=== PATIENT | female | born 1955 | race Hispanic/Latino ===

== ENCOUNTER 2018-11-02 00:22 | Inpatient (IN) | payer OTHER, SELFPAY ==
[2018-11-02] MEDS ORDERED: Naloxone HCl 0.4 mg/ml Vial ONE ×2 (00:24→05:19)
[2018-11-02] MEDS ORDERED: Ondansetron PF 4 MG/2 ML Vial ONE (00:32)
[2018-11-02] MEDS ORDERED: Acetaminophen 1,000 MG in Premix Bag 1 BAG IVPB SCH (00:45)
[2018-11-02] MEDS ORDERED: Lorazepam 2 MG/ML VIAL ONE (00:58)
[2018-11-02 01:05] LABS: #Basophils 0.1 thou/uL (0.0-0.2); #Lymphocytes 2.2 thou/uL (1.20-3.40); #Monocytes 0.9 thou/uL (0.11-0.59); #Neutrophils 8.7 thou/uL (1.40-6.50); %Basophils 0.6 % (0.0-1.0); %Eosinophils 0.1 % (0.0-10.0); %Lymphocytes 18.7 % (21.0-51.0); %Monocytes 7.6 % (0.0-10.0); Hemoglobin 11.2 g/dL (12.0-16.0); Mean Corpuscular HGB CONC 35.1 g/dL (32.0-36.0); Mean Corpuscular Hemoglobin 30.4 pg (27.0-31.0); Mean Corpuscular Volume 86.6 fL (78.0-98.0); Platelet Count 428 thou/uL (130-400); Red Blood Cell (RBC) Count 3.67 mill/uL (4.20-5.40); White Blood Cell (WBC) Count 11.9 thou/uL (4.8-10.8)
[2018-11-02 01:19] LABS: Acetaminophen Less than 6.0 mcg/mL (10.0-30.0); Alcohol Less than 10 mg/dL (Less than 10); Salicylate Less than 8.0 mg/dL (15.0-30.0)
[2018-11-02 01:26] LABS: ALT (SGPT) 27 U/L (8-55); AST (SGOT) 18 U/L (5-34); Albumin 3.6 g/dL (3.4-4.8); Alkaline Phosphatase 70 U/L (40-150); Anion Gap 17 mmol/L (10-20); BUN (Urea Nitrogen) 36 mg/dL (9.8-20.1); Bilirubin, Total 0.4 mg/dL (0.2-1.2); Calc. Creatinine Clearance 0 mL/min (70-130); Calcium 8.5 mg/dL (7.8-10.44); Carbon Dioxide 11 mmol/L (23-31); Chloride 113 mmol/L (98-107); Estimated GFR-MDRD 45; Globulin 2.6 g/dL (2.4-3.5); Glucose 263 mg/dL (80-115); Lipase 57 U/L (8-78); Protein, Total 6.2 g/dL (6.0-8.3); Sodium 138 mmol/L (136-145)
[2018-11-02 01:42] LABS: CKMB 4.3 ng/mL (0-6.6)
[2018-11-02] MEDS ORDERED: Atropine Sulfate 1 mg/10 ml Syringe ONE (03:04)
[2018-11-02] MEDS ORDERED: metroNIDAZOLE 500 MG/100 ML BAG ONE (03:36)
[2018-11-02] MEDS ORDERED: Aspirin 300 MG Suppository ONE (03:36)
[2018-11-02] MEDS ORDERED: Aspirin 325 MG TAB ONE (03:37)
[2018-11-02] MEDS ORDERED: methylPREDNISolone Sod Succ/PF 125 MG/2 ML VIAL ONE (05:44)
[2018-11-02] MEDS ORDERED: diphenhydrAMINE 50 MG/ML VIAL ONE (05:44)
[2018-11-02 07:12] LABS: Bilirubin Negative (Negative); Blood, Urine Negative (Negative); Clarity CLEAR (Clear); Glucose, Urine (Dipstick) Negative (Negative); Leukocyte Negative (Negative); Nitrite Negative (Negative); Protein, Urine (Dipstick) Trace mg/dL (Neg-Trace); Urobilinogen 0.2 mg/dL (0.2-1.0)
[2018-11-02 07:13] LABS: Amphetamine Not Detected (NotDetected); Barbiturates Screen Not Detected (NotDetected); Benzodiazepine Screen Detected (NotDetected); Cocaine Metabolite Screen Not Detected (NotDetected); Medtox Control Line Valid? VALID (VALID); Medtox Reader # READER 1; Methadone Not Detected (NotDetected); Methamphetamine Not Detected (NotDetected); Opiate Screen Detected (NotDetected); Oxycodone Screen Not Detected (NotDetected); Phencyclidine (PCP) Not Detected (NotDetected); THC/Cannabinoid Screen Not Detected (NotDetected); Tricyclic Screen Not Detected (NotDetected)
[2018-11-02 07:33] LABS: Specific Gravity, Urine 1.046 (1.002-1.036)
--- NOTE | 2018-11-02 08:27 | RAD ---
CHEST 1 VIEW: Date: 11/02/18 HISTORY: Chest pain. COMPARISON: Chest radiograph dated 07/10/17. FINDINGS: Lungs are hypoinflated with vascular crowding. No pneumothorax. No large effusion. No acute osseous a bnormality. IMPRESSION: Lung hypoinflation with vascular crowding. POS: [facility]
[2018-11-02 08:30] LABS: Anion Gap 14 mmol/L (10-20); BUN (Urea Nitrogen) 32 mg/dL (9.8-20.1); Calc. Creatinine Clearance 0 mL/min (70-130); Calcium 8.6 mg/dL (7.8-10.44); Carbon Dioxide 10 mmol/L (23-31); Chloride 118 mmol/L (98-107); Estimated GFR-MDRD 68; Glucose 188 mg/dL (80-115); Sodium 139 mmol/L (136-145)
[2018-11-02] MEDS ORDERED: Insulin Regular 300 UNITS/3 ML VIAL SC PRN (08:33)
[2018-11-02] MEDS ORDERED: Dextrose 50% Abboject 50 ML SYRINGE SLOW IVP PRN (08:33)
[2018-11-02] MEDS ORDERED: Dextrose 5% in Water 1,000 ML IV PRN (08:33)
[2018-11-02 08:37] LABS: Potassium 2.7 mmol/L (3.5-5.1)
[2018-11-02] MEDS ORDERED: Sodium Bicarbonate 100 MEQ in Sodium Chloride 0.45% 1,000 ML IV SCH (08:45)
[2018-11-02] MEDS ORDERED: Potassium Chloride 40 MEQ in Premix Bag 1 BAG IVPB SCH (09:00)
[2018-11-02] MEDS ORDERED: 1/2 NS w/KCL 20 mEq 1,000 ML IV SCH (09:00)
[2018-11-02] MEDS ORDERED: Potassium Chloride 10 MEQ TAB PO SCH ×5 (09:00→21:00)
--- NOTE | 2018-11-02 09:18 | CT ---
PRELIMINARY REPORT/[facility]/EMERGENTY AFTER-HOURS PROCEDURE CT Abdomen and Pelvis With Contrast EXAM DATE/TIME: 11/02/2018 1:59 AM CLINICAL HISTORY: 62 years old, female; Pain; Abdominal pain; Generalized; Patient HX: FBlaine presents to ed for altered m ental status. Ems reports altered mental status per family and reports gsc of 14. Pt's family reports PT fell last week and reports she has been "feeling really really sick". Pt's family reports problem s with her stomach reporting she hasn't been able to eat and has been vomiting x2 days. TECHNIQUE: Axial computed tomography images of the abdomen and pelvis with intravenous contrast. Coronal reforma tted images were created and reviewed. COMPARISON: No relevant prior studies available. FINDINGS: Lower thorax: Minimal bibasilar atelectasis. ABDOMEN: Liver: Normal. Gallbladder and bile ducts: Normal. Pancreas: Normal. Spleen: Normal. Adrenals: Normal. Kidneys and ureters: Simple right renal cysts, the largest measuring approximately 10 mm in diameter. Nonobstructing 2 mm left nephrolithiasis. Stomach and bowel: Normal. Appendix: Appendix is normal. PELVIS: Bladder: Unremarkable as visualized. Reproductive: Uterus is surgically absent. ABDOMEN and PELVIS: Intraperitoneal space: Normal. No free air. No significant fluid collection. Bones/joints: No acute abnormality. Soft tissues: Small fat containing umbilical hernia. Vasculature: Mild three-vessel coronary artery atherosclerotic disease. Atherosclerotic disease of the abdominal aorta. Phleboliths within the pelvis. Lymph nodes: Normal. No enlarged lymph nodes. IMPRESSION: No acute abdominal or pelvic abnormality. Thank you for allowing us to participate in the care of your patient. Dictated and Authenticated by: Hari Warren MD 11/02/2018 2:16 AM Central Time ([place] & [place]) FINAL REPORT CT ABDOMEN AND PELVIS WITH CONTRAST: Date: 11/02/18 HISTORY: Abdominal pain. COMPARISON: CT abdomen and pelvis dated 06/24/16. FINDINGS/IMPRESSION: Findings and impression are concordant with the preliminary report by [facility]. POS: [facility]
--- NOTE | 2018-11-02 09:20 | CT ---
PRELIMINARY REPORT/[facility]/EMERGENT[facility] AFTER-HOURS PROCEDURE CT Head Without Contrast EXAM DATE/TIME: 11/02/2018 1:52 AM CLINICAL HISTORY: 62 years old, female; Signs and symptoms; Altered mental status/memory loss; Confusion or disorientat ion; Patient HX: F62 presents to ed for altered mental status. Ems reports altered mental status per family and reports gsc of 14. Pt's family reports PT fell last week and reports she has been "feeling really really sick". Pt's family reports problems with her stomach reporting she hasn't been able to eat and has been vomiting x2 days. TECHNIQUE: Axial computed tomography images of the head/brain without contrast. COMPARISON: No relevant prior studies available. FINDINGS: Brain: Normal. Ventricles: Normal. Bones/joints: Normal. Sinuses: Normal as visualized. Mastoid air cells: Normal as visualized. Soft tissues: Normal. IMPRESSION: No acute intracranial abnormality. Thank you for allowing us to participate in the care of your patient. Dictated and Authenticated by: Hari Warren MD 11/02/2018 2:14 AM Central Time ([place] & [place]) FINAL REPORT CT BRAIN WITHOUT CONTRAST: Date: 11/02/18 HISTORY: Altered mental status. COMPARISON: CT brain dated 08/19/12. FINDINGS/IMPRESSION: Findings and impression are concordant with the preliminary report by [facility]. POS: [facility]
[2018-11-02 09:27] LABS: Troponin I 0.035 ng/mL (< 0.028)
[2018-11-02] MEDS: Potassium Chloride 20 MEQ in Premix Bag 1 BAG IVPB SCH ×2 (10:25→22:03)
--- NOTE | 2018-11-02 11:16 | HP ---
PRIMARY CARE PHYSICIAN: Caity Moreno. CHIEF COMPLAINT: Altered mentation with low blood pressure at home. History obtained from the patient and the family at the bedside. HISTORY OF PRESENT ILLNESS: The patient is a 62-year-old female with hypertension, chronic pain syndrome, and diabetes mellitus type 2, was brought into the emergency room with above symptoms. The patient had a mechanical fall last week. Since then, she has been declining. She has not been eating and drinking well. She is unable to keep any food down due to vomiting especially after eating. No fever, chills, or diarrhea reported. She denies any chest pain, palpitations, lightheadedness, dizziness, or syncope. Yesterday morning, her blood pressure was in 170s. She took a dose of 0.1 mg clonidine, which she takes as needed for elevated blood pressure. She also took a scheduled lisinopril dose. The family noticed that the blood pressure was in 60s along with altered mentation, for which she was brought to the hospital for evaluation. PAST MEDICAL HISTORY: 1. Hypertension. 2. Diabetes mellitus type 2. 3. Chronic pain syndrome. 4. Degenerative joint disease. 5. GERD. PAST SURGICAL HISTORY: 1. Cholecystectomy. 2. Hysterectomy. ALLERGIES: NO KNOWN DRUG ALLERGIES. CURRENT HOME MEDICATIONS: Family to bring the current list of medications. She is unable to recall all of her medications. She takes lisinopril every day. She takes clonidine as needed for elevated blood pressure. SOCIAL HISTORY: The patient currently lives at home. No smoking, alcohol, or drug use. The family is at the bedside. FAMILY HISTORY: Negative for premature coronary artery disease. REVIEW OF SYSTEMS: All other review of systems were reviewed and were found negative. PHYSICAL EXAMINATION: VITAL SIGNS: In the emergency room showed temperature of 98.1, respirations 16, pulse rate of 57, blood pressure of 74/39 that improved with IV fluids. She was also dropped her heart rate in 40s requiring atropine in the emergency room. GENERAL: A 62-year-old female, in no apparent distress. Pain controlled at this time. HEENT: Head, atraumatic and normocephalic. Sclerae are anicteric. Dry mucous membranes. No oral lesion. NECK: Supple. No JVD appreciated. No carotid bruit. LUNGS: Essentially clear to auscultation bilaterally. No wheezing, rales, or rhonchi. HEART: S1 and S2 present. Regular rate and rhythm. No murmurs, rubs, or gallops appreciated. ABDOMEN: Soft, nontender. Bowel sounds are present. No rebound or guarding. No costovertebral angle tenderness. EXTREMITIES: No edema or calf tenderness. NEUROLOGIC: Grossly nonfocal. Moves all 4 extremities. PSYCHIATRY: The patient is slow to respond, however, answers appropriately. She is alert, awake, and oriented x3. Normal affect. SKIN: Warm and dry. PERIPHERAL VASCULAR: Radial pulses palpable bilaterally, low volume. LYMPH NODES: No palpable lymph nodes in the neck. LABORATORY DATA: Sodium 138, potassium 3, chloride 113, bicarbonate 11, BUN 36, creatinine 1.21, glucose of 263. WBC 11.9, hemoglobin 11.2, platelet 428. Lactic acid 2.3. Troponin 0.084. BNP 301. Urine specific gravity 1.046. There were no wbc's or bacteria in the urine. Urine drug screen was positive for opiates. IMAGING STUDIES: Chest x-ray by my review showed decreased lung volume without any infiltrate. CT scan of the brain by my review was negative for acute findings. CT scan of the abdomen and pelvis without contrast was negative for acute findings. It showed a simple right renal cyst measuring approximately 10 mm with nonobstructing 2 mm left nephrolithiasis. EKG by my review showed sinus bradycardia with left axis deviation and left ventricular hypertrophy. IMPRESSION: 1. Toxic metabolic encephalopathy, improving. 2. Dehydration with acute kidney injury on chronic kidney disease stage 2. 3. Metabolic acidosis/lactic acidosis. 4. Elevated troponin secondary to demand ischemia/hypotension. 5. Hypokalemia. 6. Chronic anemia. 7. Chronic pain syndrome. 8. Diabetes mellitus type 2 with hyperglycemia. 9. Renal cyst/Nonobstructing renal calculi. PLAN: The patient will be monitored on the telemetry unit. We will replace potassium. We will avoid sodium bicarbonate due to significant hypokalemia. We will get echocardiogram. We will resume selected home medications once confirmed. We will slowly advance the diet. Orthostatic vital signs every morning. Vital signs q.4 hourly. Insulin sliding scale. We will check A1c. Frequent neuro checks. Recheck labs in a.m. Plan of care was discussed with the patient in detail. She stated understanding. Job ID: [id number] [facility]
[2018-11-02] MEDS ORDERED: traMADol HCl 50 MG TAB PO PRN (12:23)
[2018-11-02] MEDS: Gabapentin 300 MG CAP PO SCH ×2 (15:12→20:23)
[2018-11-02] MEDS: Heparin 5,000 UNITS/ML VIAL SC SCH ×2 (15:13→21:00)
[2018-11-02] MEDS ORDERED: ISOVUE-370 76%-LOCM 1 ML ONE (16:36)
[2018-11-02] MEDS ORDERED: Ondansetron PF 4 MG/2 ML Vial IVP PRN (17:18)
[2018-11-02] MEDS ORDERED: Ondansetron ODT 4 MG TAB PO PRN (17:18)
[2018-11-02] MEDS ORDERED: Labetalol HCl 100 MG/20 ML VIAL SLOW IVP PRN (19:57)
[2018-11-02] MEDS: 1/2 NS w/KCL 20 mEq 1,000 ML IV SCH ×2 (19:59→21:09)
[2018-11-02] MEDS: Acetaminophen 325 MG TAB PO PRN (20:24)
[2018-11-02] MEDS: Famotidine 20 MG TAB PO SCH (20:25)
[2018-11-02] MEDS: Insulin Regular 300 UNITS/3 ML VIAL SC PRN (21:03)
[2018-11-02] MEDS: cloNIDine 0.1 MG TAB PO PRN (22:15)
[2018-11-02] MEDS: hydrALAZINE 20 MG/ML VIAL SLOW IVP PRN (23:56)
[2018-11-03 05:48] LABS: ALT (SGPT) 45 U/L (8-55); AST (SGOT) 42 U/L (5-34); Albumin 3.5 g/dL (3.4-4.8); Alkaline Phosphatase 61 U/L (40-150); Anion Gap 12 mmol/L (10-20); BUN (Urea Nitrogen) 21 mg/dL (9.8-20.1); Bilirubin, Total 0.3 mg/dL (0.2-1.2); Calc. Creatinine Clearance 79 mL/min (70-130); Calcium 9.3 mg/dL (7.8-10.44); Carbon Dioxide 15 mmol/L (23-31); Chloride 119 mmol/L (98-107); Estimated GFR-MDRD 71; Globulin 2.9 g/dL (2.4-3.5); Glucose 144 mg/dL (80-115); Magnesium 1.8 mg/dL (1.6-2.6); Potassium 3.8 mmol/L (3.5-5.1); Protein, Total 6.4 g/dL (6.0-8.3); Sodium 142 mmol/L (136-145)
[2018-11-03 06:14] LABS: Band 7 % (5-11); Hemoglobin 10.2 g/dL (12.0-16.0); Lymphocytes 42 % (21-51); MDiff Complete? YES; Mean Corpuscular HGB CONC 34.5 g/dL (32.0-36.0); Mean Corpuscular Hemoglobin 29.9 pg (27.0-31.0); Mean Corpuscular Volume 86.7 fL (78.0-98.0); Mean Platelet Volume 8.2 fL (7.4-10.4); Monocytes 3 % (0-10); Neutrophil 48 % (42-75); Platelet Count 406 thou/uL (130-400)
[2018-11-03] MEDS: cloNIDine 0.1 MG TAB PO PRN ×2 (08:38→15:39)
[2018-11-03] MEDS: Famotidine 20 MG TAB PO SCH ×2 (08:39→20:32)
[2018-11-03] MEDS: Gabapentin 300 MG CAP PO SCH ×3 (08:39→20:32)
[2018-11-03] MEDS: Heparin 5,000 UNITS/ML VIAL SC SCH ×3 (08:40→20:29)
[2018-11-03 15:04] VITALS: BMI 37.5
[2018-11-03] MEDS ORDERED: Lisinopril 20 MG TAB PO SCH (17:15)
--- NOTE | 2018-11-03 18:36 | PDOC.PN ---
- Subjective Encounter Start Date: 11/03/18 Encounter Start Time: 16:30 Subjective: Walked well with therapy this afternoon. BP trend has been elevated. -: At home was using gabapentin and tizanadine (new, for sleep) prior to admit -: No nausea, feeling better, tolerated a diet - Objective Resuscitation Status - Order Detail: 11/02/18 12:18 Resuscitation Status Routine Resuscitation Status: FULL: Full Resuscitation Vital Signs & Weight: Vital Signs (12 hours) Temp Pulse Resp BP BP BP Pulse Ox 11/03/18 17:39 182/81 H 11/03/18 15:40 97.9 F 75 20 182/81 H 100 11/03/18 15:39 182/81 H 11/03/18 10:15 81 126/59 L 11/03/18 08:38 193/86 H 11/03/18 07:55 98.5 F 76 16 193/86 H 100 Weight Admit Weight 155 lb 5 oz Weight 155 lb 14.4 oz I&O: 11/02/18 11/03/18 11/04/18 06:59 06:59 06:59 Intake Total 1184 Output Total 700 Balance 484 Result Diagrams: 11/03/18 04:40 11/03/18 04:40 Additional Labs: Accuchecks 11/03/18 11/03/18 11/03/18 17:19 10:57 05:54 POC Glucose 164 H 227 H 140 H 11/02/18 20:19 POC Glucose 224 H Phys Exam - Physical Examination Constitutional: NAD HEENT: PERRLA Neck: supple, full ROM Respiratory: clear to auscultation bilateral Cardiovascular: RRR Gastrointestinal: soft, non-tender Musculoskeletal: no edema Neurological: non-focal Lymphatic: no nodes Psychiatric: normal affect, A&O x 3 Skin: no rash Dx/Plan (1) Restless leg syndrome Status: Chronic (2) Metabolic acidosis Code(s): E87.2 - ACIDOSIS Status: Acute Plan: Improving (3) Diabetes Code(s): E11.9 - TYPE 2 DIABETES MELLITUS WITHOUT COMPLICATIONS Status: Chronic Qualifiers: (4) HTN (hypertension) Code(s): I10 - ESSENTIAL (PRIMARY) HYPERTENSION Status: Chronic Qualifiers: Plan: Uncontrolled (5) Toxic metabolic encephalopathy Code(s): G92 - TOXIC ENCEPHALOPATHY Status: Acute (6) Chronic anemia Code(s): D64.9 - ANEMIA, UNSPECIFIED Status: Acute Plan: Stable (7) Dehydration Code(s): E86.0 - DEHYDRATION Status: Acute Plan: Improving (8) Hypokalemia Code(s): E87.6 - HYPOKALEMIA Status: Acute Plan: Repleted - Plan cont current plan of care, plan discussed w/ family, out of bed/ambulate * Discussed with family decreasing gabapentin and tizanadine. Continue PT/OT. Check AML. Restarted home lisinopril. Metabolic acidosis improving. SL IVF. Continue po nutrition, tolerating well. * High risk based on age/comorbidities
[2018-11-03] MEDS: hydrALAZINE 20 MG/ML VIAL SLOW IVP PRN (20:26)
[2018-11-03] MEDS: Acetaminophen 325 MG TAB PO PRN (20:32)
[2018-11-03] MEDS: 1/2 NS w/KCL 20 mEq 1,000 ML IV SCH (20:37)
[2018-11-03] MEDS: Insulin Regular 300 UNITS/3 ML VIAL SC PRN (21:25)
[2018-11-04 05:51] LABS: Eosinophils 2 % (0-10); Hemoglobin 10.6 g/dL (12.0-16.0); Hypochromia SLIGHT = 6-15 cells (100X) (0-5/hpf); Lymphocytes 25 % (21-51); MDiff Complete? YES; Mean Corpuscular HGB CONC 34.9 g/dL (32.0-36.0); Mean Corpuscular Hemoglobin 30.1 pg (27.0-31.0); Mean Corpuscular Volume 86.3 fL (78.0-98.0); Mean Platelet Volume 8.1 fL (7.4-10.4); Monocytes 3 % (0-10); Neutrophil 70 % (42-75); PLT Morphology Comment Appears Increased; Platelet Count 451 thou/uL (130-400); Red Blood Cell (RBC) Count 3.51 mill/uL (4.20-5.40); White Blood Cell (WBC) Count 8.6 thou/uL (4.8-10.8)
[2018-11-04 05:56] LABS: Anion Gap 10 mmol/L (10-20); BUN (Urea Nitrogen) 14 mg/dL (9.8-20.1); Calc. Creatinine Clearance 93 mL/min (70-130); Calcium 9.2 mg/dL (7.8-10.44); Carbon Dioxide 18 mmol/L (23-31); Chloride 116 mmol/L (98-107); Estimated GFR-MDRD 85; Glucose 148 mg/dL (80-115); Sodium 141 mmol/L (136-145)
[2018-11-04] MEDS: Gabapentin 300 MG CAP PO SCH ×2 (08:50→17:14)
[2018-11-04] MEDS: Heparin 5,000 UNITS/ML VIAL SC SCH ×2 (08:50→17:11)
[2018-11-04] MEDS: Famotidine 20 MG TAB PO SCH (08:50)
[2018-11-04] MEDS ORDERED: Lisinopril 20 MG TAB PO SCH (09:00)
[2018-11-04] MEDS ORDERED: Potassium Chloride 20 MEQ TAB PO SCH (17:15)
[2018-11-04 17:17] VITALS: BP 169/77; TEMP 98.5
--- NOTE | 2018-11-05 16:58 | EKG ---
Test Reason : Blood Pressure : / mmHG Vent. Rate : 057 BPM Atrial Rate : 057 BPM P-R Int : 146 ms QRS Dur : 084 ms QT Int : 436 ms P-R-T Axes : 017 -11 025 degrees QTc Int : 424 ms Sinus bradycardia Moderate voltage criteria for LVH, may be normal variant Borderline ECG Confirmed by WEST ANGELES ([id number]), production editor NAM WILLIAMSON ([id number]) on 11/05/2018 4:57:59 PM Referred By: Confirmed By:WEST ANGELES
--- NOTE | 2018-11-05 18:56 | DIS ---
DATE OF ADMISSION: 11/02/2018 DATE OF DISCHARGE: 11/04/2018 CHIEF COMPLAINT: Alteration in mental status with low blood pressure at home. PRINCIPAL DIAGNOSES ON ADMISSION: 1. Toxic metabolic encephalopathy. 2. Dehydration/intravascular volume depletion. DISCHARGE DIAGNOSES: 1. Toxic metabolic encephalopathy, likely multifactorial in the context of dehydration as well as polypharmacy. 2. Intravascular volume depletion/dehydration, improved. 3. Chronic kidney disease stage 2. 4. Metabolic acidosis/lactic acidosis, improving. 5. Elevated troponins secondary to demand ischemia/hypotension. 6. Hypokalemia, improving. 7. Chronic anemia. 8. Chronic pain syndrome. 9. Restless leg syndrome, for which she uses gabapentin. 10. Type 2 diabetes. 11. History of essential hypertension. STUDIES AND PROCEDURES: Abdomen/pelvic CT with contrast 11/02/2018, no acute abdominal or pelvic abnormality. Simple right renal cysts, largest measuring 10 mm in diameter incidentally noted. Nonobstructing [address] brain 11/02/2018, no acute intracranial abnormality. Chest x-ray 11/02/2018, lungs are hyperinflated with vascular crowding, no pneumothorax, no large effusion, no acute osseous abnormality. HOSPITAL COURSE: Ms. Matias is a 62-year-old female presenting to [facility] on 11/02/2018 with family complaining of altered mental status and low blood pressure at home. The patient had sustained a mechanical fall the week prior, and had temporarily since the interval timeframe period, she had not been eating or drinking well, the family reporting vomiting following eating. No reported fevers or chills at home. After taking her usual blood pressure medication, family noted low blood pressure for which she was brought to the hospital for evaluation. Ms. Matias showed evidence of intravascular volume contraction, and was treated with IV fluids. Additionally, her dose of Neurontin was decreased. In speaking with the patient's family yesterday, she has also been recently initiated on tizanidine, taking at night to promote sleep. Over the ensuing hospital course, blood pressure noted to be somewhat labile, generally running on the high side. This was not overly aggressively treated based on her initial presenting symptom of hypotension. Laboratory data showed improvement, diet was tolerated, and she appears at this time to be stable to transition home and to the care of her family. I spoke with the family about decreasing her dose of Neurontin to 300 mg p.o. three times daily as well as discontinuing tizanidine at this time. My concern is that with her exposure to both medications, this maybe contributing to alteration in her mental status secondary to polypharmacy. They expressed understanding. They will also be present at home to continue to assist her in her recovery. On the day of discharge, I saw and examined the patient, spoke with the family in the room. The patient is eager to return to home. Her lungs are clear to auscultation. Her abdomen is soft and nontender. She has no significant lower extremity edema. Neurologically, she is intact. She is oriented to person, place, and time, able to name her family members present in the room. Her home support is excellent. DISCHARGE INSTRUCTIONS: DISCHARGE: To home. MEDICATIONS: 1. Neurontin 300 mg p.o. three times daily, represents decreased dose relative to admission. 2. HFA 1 to 2 puffs q.4 hourly p.r.n. shortness of breath, same as admission. 3. Buprenorphine, uses 300 mcg patch on inside of cheek for 5 seconds b.i.d. 4. Clonidine 0.1 mg p.o. b.i.d. 5. Lisinopril 20 mg p.o. once daily. 6. Metformin 500 mg p.o. b.i.d. with meals. 7. Potassium chloride 20 mEq p.o. daily. 8. Tramadol 150 mg p.o. b.i.d. p.r.n. pain. DIET: Diabetic. ACTIVITY: As tolerated. FOLLOWUP: Follow up with primary care physician, Rashid in 7 days. Total time spent on discharge is 45 minutes. Job ID: [id number]
--- NOTE | 2018-11-07 09:00 | PQF ---
Miri Matias AYDEE PINTO [id number] [facility]-269 [id number] CLINICAL DOCUMENTATION CLARIFICATION FORM: POST DISCHARGE DATE: 11/07/2018 ATTN: Dr. Pinot Please exercise your independent, professional judgment in responding to the clarification form. Clinical indicators are provided on the bottom of this form for your review Please check appropriate box(s) to clarify if the following diagnosis has been ruled in or ruled out: Acute Kidney Injury [ ] Ruled in diagnosis [ ] Continue to treat [ ] Resolved [ ] Ruled out diagnosis [ ] Cannot rule out diagnosis [ ] Other diagnosis (please specify) [ ] Unable to determine In addition, please specify: Present on Admission (POA): [ ] Yes [ ] No [ ] Unable to determine For continuity of documentation, please document condition throughout progress notes and discharge summary. Thank You. CLINICAL INDICATORS - SIGNS / SYMPTOMS / LABS Per H&P: Dehydration with acute kidney injury on chronic kidney disease stage 2. Per labs: BUN 36 and 32 on 11/02. 21 on 11/03. Creatinine 1.21 on 11/02. RISK FACTORS Dehydration with toxic metabolic encephalopathy. TREATMENTS IV Fluids. (This form is maintained as a part of the permanent medical record) 2014 [employer] All Rights Reserved Salima [email or web address] [phone] [email or web address]
== END 2018-11-04 19:00 | disposition home or self-care (01) | DRG 682 ==
LOC: ERS 00:22 → ERHOLD 05:25 → 2NO 09:20
PROVIDERS: ADMIT Internal Medicine; ATTEND Internal Medicine
DX: N17.9 Acute kidney failure, unspecified (principal); G92 Toxic encephalopathy; I24.8 Other forms of acute ischemic heart disease; E87.2 Acidosis; E86.0 Dehydration; E11.22 Type 2 diabetes mellitus with diabetic chronic kidney disease; E11.65 Type 2 diabetes mellitus with hyperglycemia; I12.9 Hypertensive chronic kidney disease with stage 1 through stage 4 chronic kidney disease, or unspecified chronic kidney disease; N18.2 Chronic kidney disease, stage 2 (mild); E87.6 Hypokalemia; G89.4 Chronic pain syndrome; K21.9 Gastro-esophageal reflux disease without esophagitis; N20.0 Calculus of kidney; G25.81 Restless legs syndrome; D64.9 Anemia, unspecified; T42.8X5A Adverse effect of antiparkinsonism drugs and other central muscle-tone depressants, initial encounter; T42.6X5A Adverse effect of other antiepileptic and sedative-hypnotic drugs, initial encounter; Z88.1 Allergy status to other antibiotic agents; Z79.84 Long term (current) use of oral hypoglycemic drugs; Z79.899 Other long term (current) drug therapy
CPT/HCPCS: 36415; 36416; 70450; 71045; 74177; 80048; 80053; 80306; 80307; 81003; 82010; 82553; 83036; 83605; 83690; 83735; 83880; 84443; 84484; 85025; 90471; 90686; 93005; 96365; 96366; 96368; 96375; 96376; G0008; J0131; J0360; J0461; J0744; J1200; J1644; J1815; J2060; J2310; J2405; J2930; J3480; Q0162

== ENCOUNTER 2018-11-05 21:00 | Inpatient (IN) | payer SELFPAY ==
[2018-11-05] MEDS ORDERED: Ondansetron PF 4 MG/2 ML Vial ONE (21:19)
[2018-11-05 22:01] LABS: #Basophils 0.1 thou/uL (0.0-0.2); #Eosinphils 0.1 thou/uL (0.0-0.7); #Lymphocytes 2.4 thou/uL (1.20-3.40); #Monocytes 0.6 thou/uL (0.11-0.59); #Neutrophils 7.9 thou/uL (1.40-6.50); %Basophils 0.6 % (0.0-1.0); %Eosinophils 1.3 % (0.0-10.0); %Lymphocytes 21.3 % (21.0-51.0); %Monocytes 5.5 % (0.0-10.0); %Neutrophils 71.3 % (42.0-75.0); Hemoglobin 11.2 g/dL (12.0-16.0); Mean Corpuscular HGB CONC 34.7 g/dL (32.0-36.0); Mean Corpuscular Hemoglobin 29.9 pg (27.0-31.0); Mean Corpuscular Volume 86.1 fL (78.0-98.0); Mean Platelet Volume 7.6 fL (7.4-10.4); Platelet Count 588 thou/uL (130-400); RBC Distribution Width 13.3 % (11.5-14.5); Red Blood Cell (RBC) Count 3.74 mill/uL (4.20-5.40)
[2018-11-05 22:23] LABS: ALT (SGPT) 30 U/L (8-55); AST (SGOT) 22 U/L (5-34); Albumin 3.9 g/dL (3.4-4.8); Alkaline Phosphatase 69 U/L (40-150); Anion Gap 14 mmol/L (10-20); BUN (Urea Nitrogen) 11 mg/dL (9.8-20.1); Bilirubin, Total 0.3 mg/dL (0.2-1.2); Calc. Creatinine Clearance 0 mL/min (70-130); Calcium 9.1 mg/dL (7.8-10.44); Carbon Dioxide 20 mmol/L (23-31); Chloride 110 mmol/L (98-107); Estimated GFR-MDRD 82; Glucose 187 mg/dL (80-115); Lipase 44 U/L (8-78); Protein, Total 6.9 g/dL (6.0-8.3); Sodium 141 mmol/L (136-145)
[2018-11-05 22:26] LABS: Potassium 2.7 mmol/L (3.5-5.1)
[2018-11-05] MEDS ORDERED: Fentanyl 100 MCG/2 ML VIAL ONE (22:56)
[2018-11-05] MEDS ORDERED: Senokot S 8.6-50 MG TAB PO PRN (22:57)
[2018-11-05] MEDS ORDERED: Ondansetron ODT 4 MG TAB PO PRN (22:57)
[2018-11-05] MEDS ORDERED: Zolpidem Tartrate 5 MG TAB PO PRN (22:57)
[2018-11-05] MEDS ORDERED: Bisacodyl 5 MG TAB PO PRN (22:57)
[2018-11-05] MEDS ORDERED: Ondansetron PF 4 MG/2 ML Vial IVP PRN (22:57)
[2018-11-05] MEDS ORDERED: Calcium Carbonate 500 MG ChewTAB PO PRN (22:57)
[2018-11-05] MEDS ORDERED: Potassium Chloride 40 MEQ in Sodium Chloride 0.9% 250 ML 250 ML IVPB SCH (23:00)
[2018-11-05] MEDS ORDERED: HumaLOG 300 UNITS/3 ML VIAL SC PRN ×2 (23:01)
[2018-11-05] MEDS ORDERED: Dextrose 50% Abboject 50 ML SYRINGE SLOW IVP PRN (23:01)
[2018-11-05] MEDS ORDERED: Dextrose 5% in Water 1,000 ML IV PRN (23:01)
[2018-11-05] MEDS ORDERED: Morphine 4 MG/ML VIAL SLOW IVP PRN (23:03)
--- NOTE | 2018-11-05 23:48 | CT ---
ABDOMEN CT WITH CONTRAST PELVIC CT WITH CONTRAST 11/05/18 HISTORY: Left upper quadrant pain, onset yesterday. Emesis. COMPARISON: 11/02/18 FINDINGS: ABDOMEN CT: Dependent atelectatic changes. Normal heart size. No significant pericardial fluid. The visualized ao rta has a normal caliber. No periaortic fat stranding. Portal vein is patent. Surgically absent gallb ladder. The liver, spleen, pancreas and adrenal glands have appropriate enhancement. No gastrohepatic, retrocrural, or periportal lymphadenopathy. Symmetric enhancement of the kidneys. Nonobstructing punctate calculi in the left and right intrarena l collecting system. Bilaterally, no obstructive uropathy. No mesenteric mass, lymphadenopathy, free air, or free fluid. Limited evaluation of the alimentary canal by the lack of oral contrast. There does appear to be muco angelic and wall thickening involving the first and second portion of the duodenum. Correlate for peptic ulcer disease. No evidence of bowel obstruction. The ileocecal junction is normal. Unremarkable colo n. Normal caliber appendix. Sigmoid colon diverticulosis, without evidence of diverticulitis. PELVIC CT: No mass, lymphadenopathy, free air or free fluid. No lytic or blastic lesions in the osseous structures. IMPRESSION: Mucosal prominence involving the first and second portion of the duodenum. Correlate for peptic ulcer disease. POS: [facility]
[2018-11-06] MEDS ORDERED: Metoclopramide HCl 10 MG/2 ML VIAL IVP PRN (01:54)
[2018-11-06] MEDS: Sodium Chloride 0.9% 1,000 ML IV SCH ×3 (02:18→21:37)
[2018-11-06] MEDS: Morphine 4 MG/ML VIAL IV PRN ×4 (02:25→21:31)
[2018-11-06 06:00] LABS: #Eosinphils 0.1 thou/uL (0.0-0.7); #Lymphocytes 2.5 thou/uL (1.20-3.40); #Monocytes 0.7 thou/uL (0.11-0.59); #Neutrophils 9.9 thou/uL (1.40-6.50); %Basophils 0.3 % (0.0-1.0); %Lymphocytes 18.8 % (21.0-51.0); %Monocytes 5.4 % (0.0-10.0); %Neutrophils 74.5 % (42.0-75.0); Hemoglobin 10.6 g/dL (12.0-16.0); Mean Corpuscular Hemoglobin 29.5 pg (27.0-31.0); Mean Corpuscular Volume 86.8 fL (78.0-98.0); Mean Platelet Volume 7.6 fL (7.4-10.4); Platelet Count 576 thou/uL (130-400); RBC Distribution Width 13.4 % (11.5-14.5); Red Blood Cell (RBC) Count 3.59 mill/uL (4.20-5.40); White Blood Cell (WBC) Count 13.3 thou/uL (4.8-10.8)
[2018-11-06 06:20] LABS: Anion Gap 14 mmol/L (10-20); BUN (Urea Nitrogen) 8 mg/dL (9.8-20.1); Calc. Creatinine Clearance 84 mL/min (70-130); Calcium 8.3 mg/dL (7.8-10.44); Carbon Dioxide 17 mmol/L (23-31); Chloride 114 mmol/L (98-107); Estimated GFR-MDRD Greater than 90; Glucose 171 mg/dL (80-115); Potassium 3.2 mmol/L (3.5-5.1); Sodium 142 mmol/L (136-145)
--- NOTE | 2018-11-06 08:07 | HP ---
CHIEF COMPLAINT: Abdominal pain. HISTORY OF PRESENT ILLNESS: This is a 62-year-old female with past medical history of osteoarthritis, hypertension, diabetes mellitus type 2, presenting to our hospital with nausea and vomiting, which started yesterday prior to the day of admission. Per records and per the patient, she has been vomiting several times and she has been feeling very weak and tired due to the constant vomiting and dry heaves. The patient reports vomiting about 8 to 9 times on the day of admission. At this point, the patient endorses having abdominal pain, which is exacerbated with meals. The patient denies any blood in her stool, any vaginal bleeding. The patient also denies any fever, shortness of breath, cough, dysuria, hematuria, hematochezia, melena, constipation, or diarrhea. Of note, the patient was recently admitted to our hospital on 11/02/2018, and during that time, the patient was admitted for encephalopathy, likely due to toxic metabolic. The patient was also found to have dehydration during that visit. The patient was admitted to the tele unit during that time, and the patient's potassium levels were low, so was repleted and the patient improved and the patient was discharged. Now, the patient is coming with abdominal pain, nausea, and vomiting. PAST MEDICAL HISTORY: Osteoarthritis, hypertension, and diabetes mellitus type 2. FAMILY HISTORY: Reviewed and noncontributory to this visit. PAST SURGICAL HISTORY: Cholecystectomy and hysterectomy. PSYCHIATRIC HISTORY: No psych history. SOCIAL HISTORY: The patient denies alcohol use, denies any illicit drug use or smoking history. ALLERGIES: THE PATIENT IS ALLERGIC TO CIPRO. CURRENT MEDICATIONS: The patient is on: 1. Gabapentin 300 t.i.d. 2. Tramadol 50 mg. 3. Metformin 500 mg. 4. Protonix 40. 5. Tizanidine 4 mg. PHYSICAL EXAMINATION: VITAL SIGNS: The patient's blood pressure is 173/97, pulse of 104, and oxygen saturation of 98. GENERAL: The patient is lying in bed, appears to be in mild distress. The patient is able to speak to me in full sentences, but the patient states that she is in severe pain. HEENT: Normocephalic, atraumatic. Pupils are equally round and reactive to light. Extraocular movements are intact. No scleral icterus. No conjunctival pallor. Mucous membranes are moist. NECK: Trachea is midline. Full range of motion. No JVD. Supple. RESPIRATORY: Clear to auscultation bilaterally. No wheezing, no rales, no rhonchi appreciated. CARDIAC: The patient is tachycardic. ABDOMEN: Tender to palpation at the epigastric region. The patient has some guarding present. No rigidity. No distention. Abdomen is soft. Positive bowel sounds. EXTREMITIES: The patient has 5/5 upper extremity strength with good pulses bilaterally and 5/5 lower extremity strength with good pulses bilaterally. NEUROLOGIC: Cranial nerves 2 through 12 grossly intact. No neurologic deficits noted. SKIN: Warm, dry, and intact. PSYCHIATRIC: Normal affect. IMAGING DATA: CT of the abdomen and pelvis shows mucosal thickening of the duodenum, which corresponds to possible peptic ulcer disease. LABORATORY DATA: WBC 11.0, hemoglobin is 11.2, hematocrit is 32.2, and platelet count is 588. Sodium is 141, potassium is 2.7, chloride is 110, anion gap of 14, BUN is 11, creatinine is 0.72, glucose is 187, and magnesium is 1.4. ASSESSMENT AND PLAN: This is a 62-year-old female, being admitted for: 1. Intractable nausea and vomiting with epigastric abdominal pain. At this point, the patient is going to be admitted to tele and we are going to start the patient on IV fluids. We are going to get GI consult. The patient will probably need upper endoscopy due to alarming symptoms of severe abdominal pain, nausea and vomiting, and CT confirming possible peptic ulcer disease. At this point, we will follow up with GI regarding any further recommendations. 2. Diabetes mellitus type 2. We will continue the patient on insulin sliding scale. 3. Electrolyte abnormalities. We will replete the patient's potassium and magnesium. We will follow up on morning labs to see if potassium and magnesium have been corrected. 4. Hypertension. The patient's blood pressure currently uncontrolled. We will continue the patient on home medications and we will give the patient p.r.n. blood pressure medications to control the patient's blood pressure. 5. Deep venous thrombosis and gastrointestinal prophylaxis. Job ID: [id number]
[2018-11-06] MEDS: cloNIDine 0.1 MG TAB PO SCH ×2 (08:48→21:30)
[2018-11-06] MEDS: Gabapentin 300 MG CAP PO SCH ×3 (08:50→21:31)
[2018-11-06] MEDS: Lisinopril 20 MG TAB PO SCH (08:50)
[2018-11-06] MEDS: Famotidine 20 MG TAB PO SCH (08:50)
[2018-11-06] MEDS: Famotidine/PF 20 mg/2ml Vial SLOW IVP SCH (08:50)
[2018-11-06] MEDS: Potassium Chloride 20 MEQ TAB PO SCH (08:50)
[2018-11-06] MEDS ORDERED: BUPRENORPHINE HCL BUC SCH (09:00)
[2018-11-06] MEDS: Enoxaparin Sodium 40 MG/0.4 ML SYRINGE SC SCH (11:35)
--- NOTE | 2018-11-06 12:19 | CON ---
DATE OF CONSULTATION: 11/06/2018 REFERRING DOCTOR: Christos Gomez DO REASON FOR CONSULTATION: Abdominal pain, nausea, and vomiting. HISTORY OF PRESENT ILLNESS: Miri Matias is a 62-year-old female hospitalized with abdominal pain, nausea, and vomiting. The patient hospitalized here a few days ago and was discharged home. She returned back to the ER because of recurrent abdominal pain, nausea, and vomiting. The patient is status post cholecystectomy many years ago. Her abdominal pain predominantly epigastric/periumbilical area going towards left upper quadrant. She has severe nausea and vomiting. Apparently, she has vomited nearly 10 times. An abdominal CAT scan done showed mild thickening of the first and second part of the duodenum. There was no other pathology seen. She is on pain medication and she is likely feeling better. She appears very comfortable at the present time. She says the pain has almost gone because of pain medication. She has no nausea or vomiting today. Her bowel movements are fairly regular. No history of hematochezia or any melena. The patient was seen by me, I believe a couple of years ago with acute onset of abdominal pain, nausea, and vomiting. She had an EGD and was found to have a shallow ulcer of the gastric antrum. She was treated appropriately. At present time, denies any dysphagia, odynophagia, heart burn etc,. ALLERGIES: ALLERGIC TO CIPRO. SOCIAL HISTORY: The patient does not smoke or drink alcohol. PAST MEDICAL HISTORY: Medical illnesses; 1. Obesity. 2. Hypertension. 3. Type 2 diabetes mellitus. 4. Osteoarthritis and does see Dr. Wells, who is a trimming assembler. PAST SURGICAL HISTORY: Surgeries; 1. Status post cholecystectomy. 2. Status post hysterectomy. PAST PSYCHIATRIC HISTORY: No history of depression or anxiety. MEDICATION LIST: Reviewed include; 1. Gabapentin. 2. Tramadol. 3. Metformin. 4. Protonix. 5. Tizanidine. REVIEW OF SYSTEMS: A 10-point system was reviewed. INDUSTRIAL TECHNICIAN: No history of chronic headache. No syncope. No TIA. No seizure disorder. RESPIRATORY SYSTEMS: Denies any chronic cough, hemoptysis, dyspnea. CARDIOVASCULAR SYSTEM: No chest pain. No palpitation. No dyspnea, orthopnea, or PND. GI: As in history of present illness. : No dysuria, hematuria, or frequent urination. MUSCULOSKELETAL: History of arthritis and does see Dr. Wells, who is a trimming assembler. EYES: No impaired vision. No blurring of vision. EARS: No ear pain or any hearing loss. NOSE: No nosebleed. THROAT: No dysphagia or odynophagia. No sore throat. PHYSICAL EXAMINATION: GENERAL: The patient appears very comfortable, in no acute distress. VITAL SIGNS: Stable, except this monitor is very high and she had to be given medicines . Temperature 98.8 degrees Fahrenheit, pulse 102, and blood pressure is 214/100. Subsequently, this come down to 199/84. HEENT: Conjunctivae clear. NECK: Supple. No adenitis or thyromegaly noted. CARDIOVASCULAR SYSTEM: First and second heart sounds were heard. LUNGS: Clear to auscultation. GI: Abdominal exam is benign. Abdomen is nondistended and she is minimally tender in epigastric/periumbilical area. There is no rebound or guarding. No organomegaly or masses. EXTREMITIES: Reveal no edema. CENTRAL NERVOUS SYSTEM: Grossly within normal limits. LABORATORY DATA: Lab data on admission 11/05/2018; WBC 11,000, hemoglobin 11.2, hematocrit 32.3, MCV 80.1, platelet count 588,000, polymorphs 71, and lymphocytes 21. Today, hemoglobin is 10.6 and hematocrit 31.1. Chemistry panel shows sodium is 142, potassium 3.2, chloride 114, bicarb 17, BUN is 9, creatinine 0.66, glucose 171, calcium 8.3, and magnesium 1.4. Liver function tests are normal. Lipase 44. Abdominal sonogram shows some thickening of the first and second part of the duodenum. Otherwise, the examination is normal. CLINICAL IMPRESSION AND PLAN: A 62-year-old female with abdominal pain, nausea, and vomiting. Workup is basically negative except for mild thickening of the duodenal wall. I believe she seem to have infectious pathology to account for the nausea and vomiting. She could have some gastroparesis. Other than ulcer disease, it really does not cause this much symptoms of nausea, vomiting, and abdominal pain. Anyway, her abdominal CAT scan is slightly abnormal and I will plan for EGD later on today. In the meantime, we will try her on some Reglan 10 mg q.8 hours. I will make further recommendation. I will plan for EGD later on today. Job ID: [id number] [facility]
[2018-11-06] MEDS ORDERED: KETAMINE 100 MG/ML (5ML VIAL) ONE (13:52)
--- NOTE | 2018-11-06 15:12 | OP ---
DATE OF PROCEDURE: 11/06/2018 PROCEDURE PERFORMED: Esophagogastroduodenoscopy with biopsy. PREOPERATIVE DIAGNOSIS: Abdominal pain, recurrent nausea and vomiting. POSTOPERATIVE DIAGNOSES: 1. Multiple ulcers in the gastric antrum with a clean base. 2. A large ulceration in the pyloric channel extending to the duodenal bulb. 3. Large necrotic ulcer in the apex of the duodenal bulb, normal esophagus. DESCRIPTION OF PROCEDURE: The patient was placed on her left lateral position and was given sedation by Anesthesia Department. A Pentax video gastroscope under direct vision passed down the oropharynx to the GE junction into the stomach and subsequently into the descending duodenum. The esophageal mucosa appeared normal. The GE junction, no pathology. Retroflexion failed to show any pathology from the fundus or cardia. The gastric body no pathology. The gastric antrum showed multiple ulcerations. The ulcer base appears clean and no visible vessel seen. There is a very large ulceration at the pyloric channel extending into the duodenal bulb. There is another ulceration which is over the apex of the duodenal bulb extending into descending duodenum. Biopsies were obtained from the gastric antrum and gastric body. The stomach decompressed and the scope was removed. RECOMMENDATION: 1. IV Protonix 40 twice a day. 2. Clear liquid diet. 3. Advance diet as tolerated. Job ID: [id number] [facility]
[2018-11-06] MEDS: traMADol HCl 50 MG TAB PO PRN (21:30)
[2018-11-07] MEDS: Famotidine 20 MG TAB PO SCH ×2 (00:20→10:40)
[2018-11-07] MEDS: Famotidine/PF 20 mg/2ml Vial SLOW IVP SCH ×2 (00:20→10:40)
[2018-11-07] MEDS: Morphine 4 MG/ML VIAL IV PRN ×3 (05:46→16:56)
[2018-11-07] MEDS: Sodium Chloride 0.9% 1,000 ML IV SCH ×2 (07:40→15:05)
[2018-11-07] MEDS: Potassium Chloride 20 MEQ TAB PO SCH (08:48)
[2018-11-07] MEDS: Gabapentin 300 MG CAP PO SCH ×3 (08:48→20:34)
[2018-11-07] MEDS: cloNIDine 0.1 MG TAB PO SCH ×2 (08:48→20:34)
[2018-11-07] MEDS: Enoxaparin Sodium 40 MG/0.4 ML SYRINGE SC SCH (08:49)
[2018-11-07] MEDS: Lisinopril 20 MG TAB PO SCH (08:49)
[2018-11-07 11:48] VITALS: BMI 32.7
--- NOTE | 2018-11-07 14:23 | PDOC.PN ---
- Subjective Encounter Start Date: 11/07/18 Encounter Start Time: 14:22 Feeling ok. Eating regular food. Still feels a fullness and mild discomfort in upper abdomen after she eats. She can lie back and it relieves the fullness. - Objective Resuscitation Status - Order Detail: 11/05/18 22:57 Resuscitation Status Routine Resuscitation Status: FULL: Full Resuscitation Vital Signs & Weight: Vital Signs (12 hours) Temp Pulse Resp BP BP Pulse Ox 11/07/18 11:12 98.5 F 73 16 153/68 H 98 11/07/18 08:48 100 11/07/18 07:35 98.5 F 81 18 179/79 H 100 11/07/18 03:13 98.1 F 78 16 138/69 97 Weight Admit Weight 132 lb 4.8 oz Weight 135 lb 11.2 oz I&O: 11/06/18 11/07/18 11/08/18 06:59 06:59 06:59 Intake Total 750 2390 Output Total 250 600 Balance 500 1790 Result Diagrams: 11/06/18 04:46 11/06/18 04:46 Additional Labs: Accuchecks 11/07/18 11/07/18 11/06/18 11:14 06:09 20:33 POC Glucose 157 H 127 H 132 H 11/06/18 17:11 POC Glucose 182 H Phys Exam - Physical Examination Constitutional: NAD Respiratory: no wheezing, no rales, no rhonchi, clear to auscultation bilateral Cardiovascular: RRR, no significant murmur Gastrointestinal: soft, no distention, positive bowel sounds Still very TTP in the upper abdomen. Musculoskeletal: no edema Psychiatric: normal affect, A&O x 3 Skin: normal turgor Dx/Plan (1) PUD (peptic ulcer disease) Code(s): K27.9 - PEPTIC ULC, SITE UNSP, UNSP AC OR CHR, W/O HEMOR OR PERF Status: Suspected (2) Duodenal ulcer Status: Acute (3) Diabetes Code(s): E11.9 - TYPE 2 DIABETES MELLITUS WITHOUT COMPLICATIONS Status: Chronic Qualifiers: (4) Dyslipidemia Code(s): E78.5 - HYPERLIPIDEMIA, UNSPECIFIED Status: Chronic (5) HTN (hypertension) Code(s): I10 - ESSENTIAL (PRIMARY) HYPERTENSION Status: Chronic Qualifiers: (6) Neuropathic pain Status: Chronic - Plan * Tolerating regular diet. * Blood sugars are well controlled. Will leave on heart healthy for now. * Discussed the need to avoid acidic and spicy foods in the near future. * Continue IVF and PPI today. Had extensive ulcer burden. * GI following.
--- NOTE | 2018-11-07 15:46 | PRG ---
DATE OF SERVICE: 11/07/2018 SUBJECTIVE: Miri Matias is a 62-year-old female with abdominal pain, nausea, and vomiting. She had an EGD, which revealed extensive ulcerations over the pyloric channel, gastric antrum, and also in the bulb. She is on pantoprazole twice a day and she is tolerating regular diet today. She has some epigastric fullness, but no abdominal pain. There is no nausea and no vomiting. PHYSICAL EXAMINATION: GENERAL: Appears comfortable. VITAL SIGNS: Afebrile, pulse is 73, blood pressure 153/68. CARDIOVASCULAR: First and second heart sounds are heard. LUNGS: Clear to auscultation. ABDOMEN: Soft. Abdomen is mildly tender over the epigastric area. There is no rebound or guarding. IMPRESSION: 1. Gastric ulcer, multiple. 2. Pyloric channel ulcer. 3. Duodenal ulcer. RECOMMENDATIONS: 1. No aspirin or NSAID medication. 2. Continue PPI and if she has no vomiting, consider discharge to home on PPI. Job ID: [id number]
[2018-11-07] MEDS ORDERED: diphenhydrAMINE 50 MG/ML VIAL IVP SCH (21:00)
[2018-11-07] MEDS: traMADol HCl 50 MG TAB PO PRN (22:58)
[2018-11-08] MEDS: Sodium Chloride 0.9% 1,000 ML IV SCH (02:03)
[2018-11-08 08:52] VITALS: TEMP 97.5
[2018-11-08] MEDS: Gabapentin 300 MG CAP PO SCH (08:53)
[2018-11-08] MEDS: cloNIDine 0.1 MG TAB PO SCH (08:53)
[2018-11-08] MEDS: Lisinopril 20 MG TAB PO SCH (08:53)
[2018-11-08] MEDS: Potassium Chloride 20 MEQ TAB PO SCH (08:54)
[2018-11-08] MEDS: Enoxaparin Sodium 40 MG/0.4 ML SYRINGE SC SCH (08:54)
[2018-11-08 12:00] VITALS: BP 161/70
[2018-11-08] MEDS: traMADol HCl 50 MG TAB PO PRN (12:01)
--- NOTE | 2018-11-08 15:49 | DIS ---
DATE OF ADMISSION: 11/05/2018 DATE OF DISCHARGE: 11/08/2018 DISCHARGE DIAGNOSES: 1. Multiple gastric ulcers. 2. Pyloric channel ulcer. 3. Duodenal bulb ulcer. 4. Abdominal pain. 5. Nausea and vomiting. 6. Diabetes mellitus. 7. Electrolyte abnormalities with hypokalemia and hypomagnesemia. 8. Hypertension. HISTORY OF PRESENT ILLNESS: The patient is a 62-year-old female, who had recently been admitted to this facility with what appeared to be more of a colitis-type picture, although her symptoms were not drastically different. The patient had had some altered mental status and blood pressure issues. The patient had a negative CT of abdomen. Subsequently, the patient returned to the hospital with symptoms of intractable nausea, vomiting, epigastric and left-sided abdominal pain. A repeat abdominal CT scan failing to reveal any significant pathology. Her white count was 11, potassium was low at 2.7, BUN 11, and creatinine 0.2. The patient was tender to palpation in the epigastric region with some guarding. HOSPITAL COURSE: The patient was admitted to the hospital and started on p.r.n. to treat the nausea and vomiting symptomatically. She had fluids and pain medications and her electrolytes were addressed. GI was consulted, and ultimately, the patient underwent an endoscopy, which revealed multiple gastric ulcers, pyloric channel ulcer, and a duodenal bulb ulcer. The patient had biopsies obtained during that procedure. She was placed back on clear liquids and her diet was subsequently advanced. She was placed on PPI and she continued to have a bit of fullness in the abdomen with eating, which improved if she could somewhat recline in her position. Her nausea resolved and she was able to advance to regular diet, which she tolerated reasonably well and was felt to be stable for discharge to home. PHYSICAL EXAMINATION: VITAL SIGNS: On the day of discharge, temperature 97.5, pulse 71, respirations 14, O2 saturation 96% on room air, and blood pressure 161/70. GENERAL APPEARANCE: Age-appropriate female, in no distress. Awake, alert, oriented, pleasant, and cooperative. HEART: Regular rate and rhythm without murmurs, gallops, or rubs. LUNGS: Clear bilaterally. No wheezes or rales. ABDOMEN: core machine tender to palpation in the epigastrium, but significantly better than the previous day's exam. There was no guarding. EXTREMITIES: Warm and dry without edema. DISPOSITION: The patient is discharged to home. DISCHARGE MEDICATIONS: She will continue with Protonix 40 mg p.o. b.i.d. and Zofran ODT 4 mg q.6 hours p.r.n. She will continue with metformin, potassium, albuterol, buprenorphine, lisinopril, clonidine, gabapentin, and tramadol. ACTIVITY: As tolerated. DIET: She will be on a low acid regular diet. FOLLOWUP: She is to follow up with her PCP and Dr. Lopez. She understands that the biopsy is still pending and that one of her physicians either PCP or Dr. Lopez will need to follow up on those results with her. Job ID: [id number]
== END 2018-11-08 13:01 | disposition home or self-care (01) | DRG 384 ==
LOC: ERS 21:00 → 2NO 22:50
PROVIDERS: ADMIT Internal Medicine; ATTEND Internal Medicine
PROC: 0DB68ZX Excision of Stomach, Via Natural or Artificial Opening Endoscopic, Diagnostic (ICD-10-PCS; principal; 2018-11-06)
DX: K25.9 Gastric ulcer, unspecified as acute or chronic, without hemorrhage or perforation (principal); K26.9 Duodenal ulcer, unspecified as acute or chronic, without hemorrhage or perforation; I10 Essential (primary) hypertension; E11.9 Type 2 diabetes mellitus without complications; E87.6 Hypokalemia; E83.42 Hypomagnesemia; M19.90 Unspecified osteoarthritis, unspecified site; Z88.1 Allergy status to other antibiotic agents; Z79.84 Long term (current) use of oral hypoglycemic drugs; Z79.899 Other long term (current) drug therapy
CPT/HCPCS: 36415; 36416; 74177; 80048; 80053; 83690; 83735; 85025; 88305; 88312; 93005; 93010; 96361; 96365; 96375; 96376; J1200; J1650; J2270; J2405; J2765; J3010; J3480; J7050; S0028